=== PATIENT | male | born 1970 | race Caucasian/White ===

== ENCOUNTER → 2018-12-15 13:41 | Outpatient (CLI) | payer OTHER, SELFPAY ==
--- NOTE | 2018-12-15 13:48 | DI.RAD.S_ITS ---
PROCEDURE: FL SHOULDER INJECTION MR/CT LT INDICATIONS: PAIN IN LEFT SHOULDER TECHNIQUE: The indications, alternatives, benefits, risks, and complications of the procedure were explained to the patient. Written informed consent was obtained and placed in the chart. The shoulder was examined fluoroscopically and a site for needle placement chosen for entry into the glenohumeral joint from an anterior approach. The skin was prepped and draped in a sterile fashion, and 1% lidocaine infiltrated from skin down to joint capsule. A spinal needle was inserted into the glenohumeral joint, and a small amount of iodinated contrast media injected to confirm intra-articular placement of the needle tip. This was followed by approximately 12 mL dilute solution of a gadolinium containing MR contrast agent. The needle was removed and a dressing was applied. The patient was given postprocedural instructions and sent to the MR suite for MR imaging. FINDINGS: A single fluoroscopic spot image demonstrates intra-articular location of injected iodinated contrast. IMPRESSION: Successful fluoroscopically guided administration of dilute Gadolinium solution into the shoulder joint for MR arthrogram. Dictated by: Shruti Gunderson M.D. on 12/15/2018 at 16:20 Approved by: Shruti Gunderson M.D. on 12/15/2018 at 16:20
--- NOTE | 2018-12-15 13:48 | DI.MRI.S_ITS ---
PROCEDURE: MR SHOULDER LT W CON INDICATIONS: Anterior left shoulder pain. Decreased range of motion TECHNIQUE: After the administration of 12 mL of dilute intra-articular Gadolinium contrast, oblique coronal T1 and T2 spin echo with fat saturation, oblique sagittal T1 spin echo with and without fat saturation, oblique sagittal T2 fast spin echo with fat saturation, axial T1 spin echo with fat saturation through the shoulder. COMPARISON: None. FINDINGS: Image quality: Excellent. Rotator cuff: Tendinosis and low-grade articular and bursal surface partial-thickness tear involving distal supraspinatus is seen extending to musculotendinous junction. Tendinosis and low-grade articular surface partial-thickness tear involving distal supraspinatus is also seen. Distal subscapularis tendon is intact. There is no significant rotator cuff muscle atrophy on sagittal images. Bones and bursae: No bone marrow contusions or fractures. No acromioclavicular joint degeneration. The acromion demonstrates conventional anatomy, without an os acromiale. Capsule and soft tissues: Contrast extension in superior anterior labrum is seen extending from 12 to 2:00 position consistent with superior anterior labral tear. The glenohumeral ligaments appear intact The long head of the biceps tendon demonstrates normal location and morphology. The rotator interval appears normal, without fibrosis. The coracohumeral ligament is of normal thickness. No intra-articular bodies. IMPRESSION: 1. Tendinosis and low-grade articular and bursal surface partial-thickness tear involving distal supraspinatus. Tendinosis of a low-grade articular surface partial-thickness tear involving distal infraspinatus. No full-thickness rotator cuff tendon rupture. 2. Suggestion of superior anterior labral tear at 12 to 2:00 position. 3. No marrow signal abnormality. No fracture or dislocation. Dictated by: Nigel Kern M.D. on 12/15/2018 at 16:37 Approved by: Nigel Kern M.D. on 12/15/2018 at 16:40
== END ==
PROVIDERS: PCP Family Medicine; Visit Provider General Practice
DX: M25.512 Pain in left shoulder (principal); M25.612 Stiffness of left shoulder, not elsewhere classified; M75.92 Shoulder lesion, unspecified, left shoulder
CPT/HCPCS: 23350; 73222; 77002